=== PATIENT | male | born 1980 | race Caucasian/White ===

== ENCOUNTER 2019-08-04 21:28 | Emergency (ER) | payer OTHER, SELFPAY ==
[2019-08-04 21:47] VITALS: BP 151/96; PULSE 64; RESP 14; TEMP 36.8; O2SAT 100; BMI 27.7
--- NOTE | 2019-08-04 23:03 | W.ED.WOUNDLC ---
HPI - Wound/Laceration General: Chief Complaint: Wound/Laceration Stated Complaint: finger lac Time Seen by Provider: 08/04/19 23:00 History of Present Illness: HPI narrative: Patient is a 39-year-old male comes to the ED with a cut on tip of left index finger. Patient says he was cutting stuff with a knife in the kitchen and cut the tip of his left index finger. He has cleaned the wound out and has been putting pressure on it with towel and it still continues to bleed. Patient is a patient has gotten a tetanus shot in the last 2 years. Associated symptoms: Denies chills, fever(s), nausea or vomiting Review of Systems Const: Denies: fever(s), chills or fatigue Eyes: Denies: change in vision or eye discomfort ENMT: Denies: throat pain, odynophagia, nasal discharge or nasal congestion Card: Denies: chest pain, palpitations, edema, swelling of feet/ankles, dyspnea on exertion or orthopnea Resp: Denies: dyspnea, productive cough or non-productive cough GI: Denies: abdominal pain, nausea, vomiting, diarrhea, constipation or hematochezia : Denies: flank pain, difficulty urinating, dysuria or hematuria Musc: Denies: neck pain, back pain or extremity swelling Skin/Breast: Reports: new lesions (small laceration on left index finger); Denies: rash Neuro: Denies: headache(s), numbness in extremities or weakness in extremities PFS ED PFSH: Social History Smoking and tobacco status: never smoked Physical Exam Const: COMMON NORMALS: patient oriented x3 HENMT: COMMON NORMALS: normocephalic HEAD & SCALP: normocephalic MOUTH: Normal oral and palatal mucosa present THROAT: posterior oropharynx normal and uvula midline Neck/C-Spine: COMMON NORMALS: supple GENERAL: Yes normal visual inspection Resp: COMMON NORMALS: normal respiratory effort, No retractions, No use of accessory muscles and clear to auscultation bilaterally AUSCULTATION: clear to auscultation bilaterally Cardio: COMMON NORMALS: regular rate, regular rhythm, S1 normal heart sound present, S2 normal heart sound present, No gallops present (Cardio), No clicks present (Cardio), No murmurs present (Cardio) and Peripheral pulses 2+ throughout RATE: regular rate RHYTHM: regular rhythm HEART SOUNDS: S1 normal heart sound present and S2 normal heart sound present PERIPHERAL PULSES: Peripheral pulses 2+ throughout GI: COMMON NORMALS: Normal to inspection, nondistended, normoactive bowel sounds present, Soft to palpation, non-tender and no masses PALPATION: Yes Soft to palpation : COMMON NORMALS: Yes no CVA tenderness BLADDER/KIDNEY EXAM: Yes no CVA tenderness Back/Pelvis: COMMON NORMALS: no CVA tenderness Extremity: LEFT UPPER EXTREMITY: Yes hand & digits Left hand and digits: Yes inspection (Tip of left index finger had small superficial circular shaped laceration. Sutures would not be able to close wound.) Neuro: COMMON NORMALS: patient oriented x3 and moves all extremities Skin: NARRATIVE SKIN EXAM: Laceration findings detailed out in extremity section of exam. GENERAL SKIN EXAM: dry skin Course Vital Signs: Vital signs: Vital Signs Temperature 98.3 F 08/04/19 21:47 Pulse Rate 64 08/04/19 21:47 Respiratory Rate 16 08/05/19 00:23 Blood Pressure 151/96 08/04/19 21:47 Pulse Oximetry 100 08/04/19 21:47 MDM - Wound/Laceration MDM Narrative: Medical decision making narrative: Patient is a 39-year-old male comes to the ED with superficial laceration on tip of left index finger. Patient up-to-date on tetanus and says he received it within the last 2 years. there is a small superficial circular shaped laceration. Sutures would not be able to close wound. The nurse then irrigated the wound with normal saline and placed bacitracin on laceration and place a bandage over it. Patient was given a dose of cephalexin while here in the ED as prophylactic treatment. Patient was told to clean, apply triple antibiotic ointment and bandage cut on finger daily. He was given a prescription for Keflex as a prophylactic treatment for infection. Patient was told to follow-up with PCP in 7 to 10 days for reevaluation. He was told he can return to ED if he notices any signs of infection. Patient understood and agreed with plan. Discharge Plan Discharge Patient Disposition: Home, Self-Care Clinical Impression: Laceration Condition: Stable Prescriptions: New Keflex 500 mg capsule 500 mg PO BID 4 Days Qty: 8 RF: 0 Discharge Orders: Discharge Order (Routine); Ordered 08/05/19 Ordered By: Sherman Ackerman Discharge Diet: Regular Discharge Activity: Limit activity as instructed Patient Instructions: Finger Laceration (ED) Activity Restrictions/Additional Instructions: Clean and apply triple antibiotic ointment on wound daily and bandage. Keep wound covered. Take full course of antibiotics as prescribed to help prevent infection. Call your PCP tomorrow and set up a follow-up appointment for reevaluation in 7 to 10 days. Watch for signs of infection around the wound such as increased redness, tenderness, warmth and puslike drainage. If you see any of the signs return to ED, urgent care or PCP for reevaluation. Discharge Date/Time: 08/05/19 00:23 Coding Level of Care Code ED [employer] for Ramona Hawley Exam Comprehensive
[2019-08-04] MEDS: cephALEXin 500 mg Capsule PO (23:57)
[2019-08-04] MEDS: bacitracin ointment Pkt 1 EACH TOPICAL (23:58)
[2019-08-05 00:23] VITALS: RESP 16
== END 2019-08-05 00:23 | disposition home or self-care (01) ==
PROVIDERS: Emergency Provider Physician Assistant
DX: S61.211A Laceration without foreign body of left index finger without damage to nail, initial encounter (principal); W26.0XXA Contact with knife, initial encounter
CPT/HCPCS: 12345; 99281; 99283